=== PATIENT | female | born 1980 | race Caucasian/White ===

== ENCOUNTER 2022-03-25 09:49 | Emergency (ER) | payer MEDICAID, OTHER ==
[~2022-03-25] VITALS: Ht 154.9 cm; Wt 65.9 kg
[~2022-03-25 09:49] MED LIST: NOCURR
[2022-03-25 09:56] VITALS: BP 139/70
[2022-03-25] MEDS ORDERED: INSLAN SQ (10:05)
[2022-03-25] MEDS ORDERED: METF-1211 PO (10:05)
[2022-03-25] MEDS ORDERED: IBUP-2070 PO (12:01)
== END 2022-03-25 12:31 | disposition home or self-care (01) ==
LOC: EMS 09:55
DX: S93.401A Sprain of unspecified ligament of right ankle, initial encounter (principal); E11.9 Type 2 diabetes mellitus without complications; I10 Essential (primary) hypertension; X58.XXXA Exposure to other specified factors, initial encounter; Y93.89 Activity, other specified; Y92.89 Other specified places as the place of occurrence of the external cause; Y99.8 Other external cause status
CPT/HCPCS: 99283

== ENCOUNTER 2022-12-22 12:11 | Emergency (ER) | payer OTHER ==
[~2022-12-22] VITALS: Ht 157.5 cm; Wt 81.8 kg
[~2022-12-22 12:11] MED LIST changes: +IBUP-1492 PO; +INSLAN SQ; +METF-1211 PO
[2022-12-22 12:16] VITALS: TEMP 98.1
[2022-12-22] MEDS ORDERED: LISI20TA24 PO (12:17)
[2022-12-22] MEDS ORDERED: IBUPROFEN 600 MG TABLET PO ONE (12:45)
[2022-12-22] MEDS ORDERED: ACETAMINOPHEN 500 MG TABLET PO ONE (12:45)
[2022-12-22] MEDS ORDERED: IBUP-1492 PO (14:15)
[2022-12-22 14:30] VITALS: BP 141/86; PULSE 57; RESP 18
== END 2022-12-22 14:43 | disposition home or self-care (01) ==
LOC: EMS 12:11
DX: S63.501A Unspecified sprain of right wrist, initial encounter (principal); E11.9 Type 2 diabetes mellitus without complications; I10 Essential (primary) hypertension; W18.30XA Fall on same level, unspecified, initial encounter; Y93.89 Activity, other specified; Y92.89 Other specified places as the place of occurrence of the external cause; Y99.8 Other external cause status
CPT/HCPCS: 82962; 99284